=== PATIENT | female | born 1950 | race African-American/Black ===

== ENCOUNTER 2016-10-24 16:18 | Observation (INO) | payer OTHER ==
[~2016-10-24] VITALS: Ht 170.2 cm; Wt 61.7 kg
[2016-10-24] MEDS ORDERED: DURAGESIC100 MCG TD (16:54)
[2016-10-24] MEDS ORDERED: KEPPRA750 MG PO (16:54)
[2016-10-24] MEDS ORDERED: MACROBID100 MG PO (16:54)
[2016-10-24] MEDS ORDERED: LEXAPRO5 MG PO (16:55)
[2016-10-24] MEDS ORDERED: AMBIEN10 MG PO (16:55)
[2016-10-24] MEDS ORDERED: KLONOPIN0.5 M1 PO (16:56)
[2016-10-24] MEDS ORDERED: DILAUDID4 MG PO (16:56)
[2016-10-24] MEDS ORDERED: SEROQUEL12.5 MG PO (16:56)
[2016-10-24 16:57] LABS: POINT-OF-CARE METER ID UU13113747
[2016-10-24 17:31] LABS: ADD MIUA? NO; BILIRUBIN NEGATIVE; BLOOD NEGATIVE; COLOR YELLOW ((YELLOW)); GLUCOSE (STRIP) NEGATIVE; KETONES 20; LEUKOCYTES NEGATIVE; NITRITE NEGATIVE; PROTEIN (STRIP) NEGATIVE; SPECIFIC GRAVITY 1.013 (1.000-1.030); UROBILINOGEN 0.2 MG/DL (0.2-1.0)
[2016-10-24 17:41] LABS: AMPHETAMINE NEGATIVE (500 ng/mL); BARBITURATES NEGATIVE (200 ng/mL); BENZODIAZEPINES NEGATIVE (150 ng/mL); COCAINE NEGATIVE (150 ng/mL); INTERNAL CONTROLS VALID? YES; METHADONE NEGATIVE (200 ng/mL); METHAMPHETAMINE NEGATIVE (500 ng/mL); OPIATES (MORPHINE) PRESUMPTIVE POSITIVE (100 ng/mL); OXYCODONE NEGATIVE (100 ng/mL); PHENCYCLIDINE NEGATIVE (25 ng/mL); PROPOXYPHENE NEGATIVE (300 ng/mL); THC CANNABINOIDS NEGATIVE (50 ng/mL); TRICYCLIC ANTIDEPRESSANTS NEGATIVE (300 ng/mL)
[2016-10-24 17:42] LABS: ADD MEDTOX COMMENT Y
[2016-10-24 18:36] LABS: EOSINOPHIL (%) 0.2 % (0-5); HEMATOCRIT 39.8 % (36.0-46.0); IMMATURE GRANULOCYTE (%) 0.2 % (0.0-0.7); INSTRUMENT ABS NEUTROPHIL CT 2.4 K/uL; LYMPHOCYTE COUNT 1.3 K/uL (1.0-2.8); MCH 22.2 PG (29.0-34.0); MCHC 33.2 G/DL (30.0-36.0); MONOCYTE (%) 8.9 % (3-12); MONOCYTE COUNT 0.4 K/uL (0-0.8); NEUTROPHIL (%) 58.4 % (45-76); NEUTROPHIL COUNT 2.4 K/uL (1.8-6.4); PLATELET COUNT 152 K/uL (156-360); RBC DIS.WIDTH-CV 17.7 % (11.8-14.6); RBC DIS.WIDTH-SD 38.2 % (39-53); RED BLOOD COUNT 5.94 M/uL (3.80-5.20); WHITE BLOOD COUNT 4.2 K/uL (4.1-10.2)
[2016-10-24 18:38] LABS: CHLORIDE 108 mEq/L (99-109); POTASSIUM 3.8 mEq/L (3.7-5.4); SODIUM 141 mEq/L (136-147)
[2016-10-24 18:40] LABS: GLUCOSE 81 mg/dL (70-99)
[2016-10-24 18:42] LABS: ANION GAP 10 MEQ/L (2-14); TOTAL BILIRUBIN 1.4 mg/dL (0.0-1.0)
[2016-10-24 18:44] LABS: ALKALINE PHOSPHATASE 88 IU/L (3-129); GFR ESTIMATE (CALCULATED) > 59 mL/min/
[2016-10-24 18:45] LABS: UREA NITROGEN (BUN) 10 mg/dL (9-23)
[2016-10-25 01:58] VITALS: BP 133/74
[2016-10-25 07:31] LABS: TROP-I INTERPRETATION NEGATIVE; TROPONIN-I 0.02 ng/mL (0.0-0.30)
[2016-10-25 07:45] LABS: HDL CHOLESTEROL 33 MG/DL (Desirable>=50); LDL CHOLESTEROL 71 mg/dL (Desirable<100); NON-HDL CHOLESTEROL 80 mg/dL (Desirable<160); TOTAL CHOLESTEROL 113 mg/dL (Desirable<200); TRIGLYCERIDES 46 MG/DL (Normal: <150)
[2016-10-25 09:48] VITALS: BP 140/62
[2016-10-25 10:00] LABS: ANION GAP 15 MEQ/L (2-14); CHLORIDE 109 MEQ/L (99-109); GFR ESTIMATE (CALCULATED) > 59 mL/min/; GLUCOSE 84 mg/dL (70-99); POTASSIUM 4.4 MEQ/L (3.7-5.4); SODIUM 142 MEQ/L (136-147); UREA NITROGEN (BUN) 11 mg/dL (9-23)
[2016-10-25 13:03] LABS: HEMATOCRIT 39.6 % (36.0-46.0); MCH 22.8 PG (29.0-34.0); MCHC 33.3 G/DL (30.0-36.0); MCV 68.3 FL (83-99); PLATELET COUNT 156 K/uL (156-360); RBC DIS.WIDTH-CV 17.9 % (11.8-14.6); WHITE BLOOD COUNT 3.8 K/uL (4.1-10.2)
[2016-10-25 13:04] VITALS: BP 145/72
[2016-10-25 13:30] LABS: TROP-I INTERPRETATION NEGATIVE; TROPONIN-I 0.01 ng/mL (0.0-0.30)
[2016-10-25 15:38] LABS: DIRECT BILIRUBIN 0.2 mg/dL (0.0-0.3); TOTAL BILIRUBIN 1.2 MG/DL (0.0-1.0)
[2016-10-25 15:44] LABS: ALKALINE PHOSPHATASE 81 IU/L (3-129); LIPASE 15 U/L (1.0-51.0)
[2016-10-25 16:04] VITALS: BP 111/67
[2016-10-25 19:22] VITALS: BP 129/64
[2016-10-25 23:05] VITALS: BP 149/84
[2016-10-26 03:14] VITALS: BP 121/72
[2016-10-26 12:00] VITALS: BP 128/70
[2016-10-26] MEDS ORDERED: CLONAZEPAM0.5 MG PO (12:16)
[2016-10-26] MEDS ORDERED: ESCITALOPRAM OX10 MG PO (12:16)
[2016-10-26 16:00] VITALS: BP 139/67
[2016-10-26 18:51] LABS: ADD MIUA? NO; BILIRUBIN NEGATIVE; BLOOD NEGATIVE; COLOR YELLOW ((YELLOW)); GLUCOSE (STRIP) 50; KETONES NEGATIVE; LEUKOCYTES NEGATIVE; NITRITE NEGATIVE; PROTEIN (STRIP) NEGATIVE; SPECIFIC GRAVITY 1.011 (1.000-1.030); UCUL ADDED? NO; UROBILINOGEN 0.2 MG/DL (0.2-1.0)
[2016-10-26 19:00] VITALS: BP 131/69
[2016-10-27 08:20] LABS: Estimated Average Glucose 88 mg/dL (70-123)
[2016-10-27 09:38] VITALS: BP 127/65
[2016-10-27 11:02] VITALS: BP 106/67
[2016-10-27 16:36] LABS: HEMOGLOBIN A1c (GLYCOHEMOGLOB) 4.7 % HGB (Below 5.7)
== END 2016-10-27 16:34 ==
LOC: EME 16:18 → EDOF 23:58 → 5WEST 23:58 → ENRESERV 23:58 → 5WEST 10-25 01:45 → ENPENDDIS 10-27 → 5WEST 10-27 16:34
PROVIDERS: Emergency Medicine; Hospitalist; Internal Medicine; Physician Assistant; Physician Assistant Medical
DX: R41.82 Altered mental status, unspecified (principal); F41.8 Other specified anxiety disorders; G40.909 Epilepsy, unspecified, not intractable, without status epilepticus; G89.29 Other chronic pain; Z91.81 History of falling
CPT/HCPCS: 70140; 70450; 70551; 71010; 74000; 80048; 80053; 80061; 80076; 81003; 83036; 83690; 84484; 84999; 85025; 85027; 87040; 93880; 99281; 99285; G0378; J0696; J1644; J1885; J7030; J7050